=== PATIENT | male | born 1960 | race Caucasian/White ===

== ENCOUNTER 2020-08-08 21:13 | Emergency (ER) | payer OTHER ==
[~2020-08-08] VITALS: Ht 180.3 cm; Wt 122.5 kg
[2020-08-08 21:56] LABS: BASOPHILS ABSOLUTE AUTO 0.05 K/mm3 (0.00-0.23); BASOPHILS PERCENT AUTO 1 % (0-2); EOSINOPHILS ABSOLUTE AUTO 0.35 K/mm3 (0.00-0.68); EOSINOPHILS PERCENT AUTO 4 % (0-6); Hematocrit 44.6 % (37.0-53.0); Hemoglobin 15.2 g/dL (13.5-17.5); IMMATURE GRAN ABSOLUTE AUTO 0.05 K/mm3 (0.00-0.10); IMMATURE GRAN PERCENT AUTO 1 % (0-1); LYMPHOCYTES ABSOLUTE AUTO 2.06 K/mm3 (0.84-5.20); LYMPHOCYTES PERCENT AUTO 23 % (21-46); MONOCYTES PERCENT AUTO 7 % (4-13); Mean Corpuscular HGB 29.3 pg (26.0-34.0); Mean Corpuscular HGB Conc 34.1 g/dL (31.5-36.5); Mean Corpuscular Volume 86 fL (80-100); Mean Platelet Volume 10.3 fL (9.1-12.4); NEUTROPHILS ABSOLUTE AUTO 6.06 K/mm3 (1.96-9.15); NEUTROPHILS PERCENT AUTO 66 % (41-73); Platelet Count 290 K/mm3 (150-400); RDW Coefficient Variation 13.1 % (11.7-14.2); Red Blood Cell Count 5.18 M/mm3 (4.30-5.90); White Blood Cell Count 9.17 K/mm3 (4.00-11.30)
[2020-08-08 22:16] LABS: Alanine Aminotransfer (ALT/SGP 43 U/L (12-78); Albumin/Globulin Ratio 0.7 (0.8-1.8); Alk Phos 105 U/L (50-136); Anion Gap 6 mmol/L (6-16); Aspartate Aminotrans (AST/SGOT 27 U/L (12-37); Bilirubin, Total 0.4 mg/dL (0.1-1.0); Blood Urea Nitrogen 18 mg/dL (8-24); Bun/Creatinine Ratio 20.8 (12.0-20.0); CO2, Blood 23 mmol/L (21-32); Calcium, Blood 8.6 mg/dL (8.5-10.1); Chloride, Blood 102 mmol/L (98-108); Creatinine, Blood 0.87 mg/dL (0.60-1.20); Globulin, Blood 4.1 g/dL (2.2-4.0); Glomerular Filtration Rate >60 (60-); Glucose, Blood 428 mg/dL (70-99); Potassium, Blood 5.1 mmol/L (3.5-5.5); Sodium, Blood 131 mmol/L (136-145); Total Protein, Blood 7.1 g/dL (6.4-8.2); Troponin I <0.015 ng/mL (0.000-0.040)
[2020-08-09] MEDS ORDERED: PRED20 PO (00:28)
[2020-08-09] MEDS ORDERED: GUAI600T33 PO (00:28)
[2020-08-09] MEDS ORDERED: Ventolin5 MG/1 ML NEB (00:28)
== END 2020-08-09 01:00 | disposition home or self-care (01) ==
LOC: ER 21:13
PROVIDERS: Physician Assistant
DX: J44.0 Chronic obstructive pulmonary disease with (acute) lower respiratory infection (principal); J18.9 Pneumonia, unspecified organism; J44.1 Chronic obstructive pulmonary disease with (acute) exacerbation; E16.2 Hypoglycemia, unspecified
CPT/HCPCS: 71046; 80053; 82947; 84484; 85025; 93005; 93010; 94640; 96374; 99284-25; J1815; J2930

== ENCOUNTER 2021-01-13 18:06 | Emergency (ER) | payer OTHER ==
[~2021-01-13] VITALS: Ht 180.3 cm; Wt 104.3 kg
[~2021-01-13 18:06] MED LIST: GUAI600T33 PO; PRED20 PO; Ventolin5 MG/1 ML NEB
[2021-01-13 18:39] LABS: Base Excess Venous 0.6 mmol/L; Bicarbonate Venous 24.5 mmol/L (24.0-30.0); PCO2 Venous 42.8 mmHg (38-42); PO2 Venous 58.4 mmHg (38-42); pH Blood Venous 7.39 (7.34-7.37)
[2021-01-13 18:41] LABS: BASOPHILS ABSOLUTE AUTO 0.05 K/mm3 (0.00-0.23); BASOPHILS PERCENT AUTO 1 % (0-2); EOSINOPHILS ABSOLUTE AUTO 0.37 K/mm3 (0.00-0.68); EOSINOPHILS PERCENT AUTO 4 % (0-6); Hematocrit 43.8 % (37.0-53.0); IMMATURE GRAN ABSOLUTE AUTO 0.03 K/mm3 (0.00-0.10); IMMATURE GRAN PERCENT AUTO 0 % (0-1); LYMPHOCYTES PERCENT AUTO 19 % (21-46); MONOCYTES ABSOLUTE AUTO 0.54 K/mm3 (0.16-1.47); MONOCYTES PERCENT AUTO 6 % (4-13); Mean Corpuscular HGB Conc 34.2 g/dL (31.5-36.5); Mean Corpuscular Volume 85 fL (80-100); Mean Platelet Volume 10.5 fL (9.1-12.4); NEUTROPHILS ABSOLUTE AUTO 6.35 K/mm3 (1.96-9.15); NEUTROPHILS PERCENT AUTO 70 % (41-73); Platelet Count 290 K/mm3 (150-400); RDW Coefficient Variation 12.6 % (11.7-14.2); RDW Standard Deviation 38.8 fL (35.1-46.3); Red Blood Cell Count 5.18 M/mm3 (4.30-5.90); White Blood Cell Count 9.04 K/mm3 (4.00-11.30)
[2021-01-13 19:02] LABS: Alanine Aminotransfer (ALT/SGP 31 U/L (12-78); Albumin, Blood 2.9 g/dL (3.4-5.0); Albumin/Globulin Ratio 0.7 (0.8-1.8); Alk Phos 110 U/L (50-136); Anion Gap 7 mmol/L (6-16); Aspartate Aminotrans (AST/SGOT 13 U/L (12-37); Bilirubin, Total 0.2 mg/dL (0.1-1.0); Blood Urea Nitrogen 12 mg/dL (8-24); Bun/Creatinine Ratio 15.9 (12.0-20.0); CO2, Blood 24 mmol/L (21-32); Calcium, Blood 8.6 mg/dL (8.5-10.1); Chloride, Blood 103 mmol/L (98-108); Creatinine, Blood 0.76 mg/dL (0.60-1.20); Globulin, Blood 4.1 g/dL (2.2-4.0); Glomerular Filtration Rate >60 (60-); Glucose, Blood 380 mg/dL (70-99); Phosphorus, Blood 3.3 mg/dL (2.5-4.9); Potassium, Blood 4.6 mmol/L (3.5-5.5); Sodium, Blood 134 mmol/L (136-145)
[2021-01-13 20:21] LABS: Source, Urine Clean Catch
[2021-01-13 20:24] LABS: Bilirubin, Urine Neg (Neg); Blood, Urine Neg (Neg); Glucose Qualitative, Urine 4+ (Neg); Ketones, Urine Neg (Neg); Leukocyte Esterase, Urine 2+ (Neg); Nitrite, Urine Neg (Neg); Protein, Urine Neg (Neg); Urobilinogen, Urine NORM (Normal); pH, Urine 6.5 (5.0-8.0)
[2021-01-13] MEDS ORDERED: METF500 (20:28)
[2021-01-13] MEDS ORDERED: BLOOD PRESSURE (20:28)
[2021-01-13] MEDS ORDERED: BASAGLAR K100 UNIT/1 SC (20:28)
[2021-01-13] MEDS ORDERED: ATOR10 (20:28)
[2021-01-13] MEDS ORDERED: FAST ACTING INSULIN SC (20:29)
[2021-01-13 20:32] LABS: Appearance, Urine Hazy (Clear); Color, Urine Pale Yellow (P-Yellow)
[2021-01-13 20:33] LABS: Red Blood Cells, Urine 0-2 /hpf (0-2)
[2021-01-13 20:34] LABS: Bacteria Few /hpf; Squamous Epithelial Cells Rare /hpf (Few)
== END 2021-01-13 21:29 | disposition left against medical advice (07) ==
LOC: ER 18:06
PROVIDERS: Physician Assistant
DX: R73.9 Hyperglycemia, unspecified (principal); Z53.21 Procedure and treatment not carried out due to patient leaving prior to being seen by health care provider
CPT/HCPCS: 80053; 81001; 82803; 82947; 83735; 84100; 85025; 87086; 87147; 99284; J7030

== ENCOUNTER 2021-02-09 13:06 | Emergency (ER) | payer OTHER ==
[~2021-02-09] VITALS: Ht 177.8 cm; Wt 88.5 kg
[~2021-02-09 13:06] MED LIST changes: +ATOR10; +BASAGLAR K100 UNIT/1 SC; +BLOOD PRESSURE; +FAST ACTING INSULIN SC; +METF500
[2021-02-09 13:56] LABS: BASOPHILS ABSOLUTE AUTO 0.02 K/mm3 (0.00-0.23); BASOPHILS PERCENT AUTO 0 % (0-2); EOSINOPHILS ABSOLUTE AUTO 0.08 K/mm3 (0.00-0.68); EOSINOPHILS PERCENT AUTO 1 % (0-6); Hematocrit 40.4 % (37.0-53.0); Hemoglobin 14.1 g/dL (13.5-17.5); IMMATURE GRAN ABSOLUTE AUTO 0.03 K/mm3 (0.00-0.10); IMMATURE GRAN PERCENT AUTO 0 % (0-1); LYMPHOCYTES ABSOLUTE AUTO 0.68 K/mm3 (0.84-5.20); LYMPHOCYTES PERCENT AUTO 10 % (21-46); MONOCYTES ABSOLUTE AUTO 0.42 K/mm3 (0.16-1.47); MONOCYTES PERCENT AUTO 6 % (4-13); Mean Corpuscular HGB 29.1 pg (26.0-34.0); Mean Corpuscular HGB Conc 34.9 g/dL (31.5-36.5); Mean Corpuscular Volume 83 fL (80-100); Mean Platelet Volume 11.3 fL (9.1-12.4); NEUTROPHILS PERCENT AUTO 82 % (41-73); Platelet Count 184 K/mm3 (150-400); RDW Coefficient Variation 12.9 % (11.7-14.2); RDW Standard Deviation 39.2 fL (35.1-46.3); Red Blood Cell Count 4.85 M/mm3 (4.30-5.90); White Blood Cell Count 6.73 K/mm3 (4.00-11.30)
[2021-02-09 14:32] LABS: Alanine Aminotransfer (ALT/SGP 40 U/L (12-78); Albumin, Blood 2.9 g/dL (3.4-5.0); Albumin/Globulin Ratio 0.7 (0.8-1.8); Alk Phos 86 U/L (50-136); Anion Gap 9 mmol/L (6-16); Aspartate Aminotrans (AST/SGOT 24 U/L (12-37); Bilirubin, Total 0.5 mg/dL (0.1-1.0); Blood Urea Nitrogen 13 mg/dL (8-24); Bun/Creatinine Ratio 18.1 (12.0-20.0); CO2, Blood 21 mmol/L (21-32); Calcium, Blood 8.4 mg/dL (8.5-10.1); Chloride, Blood 103 mmol/L (98-108); Creatinine, Blood 0.72 mg/dL (0.60-1.20); Glomerular Filtration Rate >60 (60-); Glucose, Blood 210 mg/dL (70-99); Sodium, Blood 133 mmol/L (136-145); Total Protein, Blood 6.9 g/dL (6.4-8.2); Troponin I <0.015 ng/mL (0.000-0.040)
[2021-02-09 15:16] LABS: SARS-Cov-2 (COVID-19) PCR, MMC POSITIVE (NEGATIVE)
[2021-02-09] MEDS ORDERED: DEXA4 PO (15:48)
== END 2021-02-09 18:11 | disposition home or self-care (01) ==
LOC: ER 13:06
PROVIDERS: Emergency Medicine
DX: U07.1 COVID-19 (principal); J12.82 Pneumonia due to coronavirus disease 2019; R09.02 Hypoxemia; I10 Essential (primary) hypertension; J44.9 Chronic obstructive pulmonary disease, unspecified; F17.200 Nicotine dependence, unspecified, uncomplicated; Z79.899 Other long term (current) drug therapy; Z79.84 Long term (current) use of oral hypoglycemic drugs; Z79.4 Long term (current) use of insulin
CPT/HCPCS: 71045; 80053; 83880; 84484; 85025; 93005; 93010; 96374; 99284-25; J1100; J2550; J7030; U0004

== ENCOUNTER 2021-02-12 16:12 | Inpatient (IN) | payer OTHER ==
[~2021-02-12] VITALS: Ht 180.3 cm; Wt 112.0 kg
[~2021-02-12 16:12] MED LIST changes: +DEXA4 PO
[2021-02-12 16:38] LABS: BASOPHILS ABSOLUTE AUTO 0.02 K/mm3 (0.00-0.23); BASOPHILS PERCENT AUTO 0 % (0-2); EOSINOPHILS ABSOLUTE AUTO 0.01 K/mm3 (0.00-0.68); EOSINOPHILS PERCENT AUTO 0 % (0-6); Hematocrit 39.7 % (37.0-53.0); Hemoglobin 13.9 g/dL (13.5-17.5); IMMATURE GRAN ABSOLUTE AUTO 0.02 K/mm3 (0.00-0.10); IMMATURE GRAN PERCENT AUTO 0 % (0-1); LYMPHOCYTES ABSOLUTE AUTO 0.87 K/mm3 (0.84-5.20); LYMPHOCYTES PERCENT AUTO 16 % (21-46); MONOCYTES PERCENT AUTO 7 % (4-13); Mean Corpuscular HGB 29.4 pg (26.0-34.0); Mean Corpuscular Volume 84 fL (80-100); Mean Platelet Volume 10.8 fL (9.1-12.4); NEUTROPHILS PERCENT AUTO 76 % (41-73); Platelet Count 214 K/mm3 (150-400); RDW Coefficient Variation 12.6 % (11.7-14.2); RDW Standard Deviation 38.5 fL (35.1-46.3); Red Blood Cell Count 4.73 M/mm3 (4.30-5.90); White Blood Cell Count 5.62 K/mm3 (4.00-11.30)
[2021-02-12 16:54] LABS: Alanine Aminotransfer (ALT/SGP 32 U/L (12-78); Albumin, Blood 2.6 g/dL (3.4-5.0); Albumin/Globulin Ratio 0.6 (0.8-1.8); Alk Phos 79 U/L (50-136); Anion Gap 5 mmol/L (6-16); Aspartate Aminotrans (AST/SGOT 28 U/L (12-37); Bilirubin, Total 0.6 mg/dL (0.1-1.0); Blood Urea Nitrogen 13 mg/dL (8-24); Bun/Creatinine Ratio 16.5 (12.0-20.0); CO2, Blood 27 mmol/L (21-32); Calcium, Blood 8.1 mg/dL (8.5-10.1); Chloride, Blood 99 mmol/L (98-108); Creatinine, Blood 0.79 mg/dL (0.60-1.20); Glomerular Filtration Rate >60 (60-); Glucose, Blood 291 mg/dL (70-99); Sodium, Blood 131 mmol/L (136-145); Total Protein, Blood 6.6 g/dL (6.4-8.2); Troponin I <0.015 ng/mL (0.000-0.040)
[2021-02-12] MEDS ORDERED: ATORVASTATIN CA20 MG PO (17:58)
[2021-02-12] MEDS ORDERED: LISI20 PO (17:59)
[2021-02-12] MEDS ORDERED: INSULIN LI100 UNIT/6 SC (17:59)
--- NOTE | 2021-02-12 22:13 | NUR ---
BLOOD SUGAR 360. DR. LIMA MADE AWARE PER SLIDING SCALE. NO NEW ORDER GIVEN. HE ADVISED TO CONTINUE WITH SAME SLIDING SCALE.
--- NOTE | 2021-02-12 23:00 | NUR ---
ADMISSION NOTE: RECEIVED PT FROM ER AAOX3. SOB. LUNGS WITH RHONCHI. ON O2 15L VIA NON-REBREAHER MASK. SAT 90%. BREATING STILL LABORED. AIRVOW INITIATED BY RT. SAT 94-96%. PT WAS ANXIOUS. MEDICATED WITH ATIVAN PRN X1. PT REPORTED FEELING BETTER. REMAINED ON AIRVOW. SR 68 ON TELE. SNACK GIVEN. TOLERATED WELL. CALL LIGHT WITHIN REACH. BED ALARM EXIT ON FOR SAFETY.
--- NOTE | 2021-02-13 05:18 | NUR ---
PT SATURATING AT 94-96% ON AIRVOW. ANXIOUS AT TIMES. NO RESP DISTRESS. VSS. SR ON TELE. CALL LIGHT WITHIN REACH. WILL CONTINUE TO MONITOR.
--- NOTE | 2021-02-13 06:18 | NUR ---
PT C/O OF NAUSEA AND HEADACHE AND STARTED COUGHING. O2 SAT DROPPED TO 84. RT CALLED AND CHARGE NURSE NOTIFIED. ZOFRAN AND TORADOL PRN GIVEN. PT BECAME LETHARGIC. HR [address] REYNOSO NOTIFIED OF PT'S CONDITION BY FUEL DOCK ATTENDANT. PT WAS PLACED ON BIPAP BY RT. SAT AT 96% NOW. ALERT AND FOLLOWS COMMANDS. SINUS MACEY ON MONITOR 52. VS 118/61, HR 51, TEMP 97.8, BG 382. ABG ORDERED. WILL CONTINUE TO MONITOR.
[2021-02-13 07:29] LABS: PCO2 Arterial 40.4 mmHg (35-45); PO2 Arterial 207 mmHg (80-100); pH Blood Arterial 7.39 (7.35-7.45)
--- NOTE | 2021-02-13 17:05 | NUR ---
SHIFT SUMMARY PT COVID +, ON BIPAP, RESTING QUIETLY AT START OF SHIFT. REQUESTED BIPAP OFF TO EAT BREAKFAST. RT ASSISTED PT AND PLACED BACK ON AIRVO 55L @ 70%. PT HAS DONE WELL ALL DAY. ONE COUGHING EPISODE; MEDICATED PER EMAR AND RT REQUEST. PT EATING AND DRINKING WELL. CBG'S ELEVATED; INSULIN ADJUSTED. PT USING URINAL AT BS INDEPENDENTLY. SLEEPING UPRIGHT IN BED MOST OF THE TIME, WATCHING TV W/A. CALL LT IN REACH. ABLE TO MAKE NEEDS KNOWN.
--- NOTE | 2021-02-13 23:59 | NUR ---
HS BS WAS 412. DR. LIMA CALLED AND NOTIFIED. SEMGLEE 20 UNITS GIVEN X1 IN ADDITION TO HS SLIDING SCALE. SNACK GIVEN. PT ON AIRVOW. SAT 90%. PT DESATS TO 88 WHEN FALLING ASLEEP. SWITCH TO BIPAP. ATIVAN PRN GIVEN. ON TELE SR. HR 62. MEDICATED FOR COUGH PER JUN. REPORTS FEELING BETTER.
--- NOTE | 2021-02-14 03:50 | NUR ---
PT IS AAOX3. SINUS MACEY TO SINUS RHYTHM ON TELE. VSS. COUGHING AT TIMES PRODUCTIVELY WHITE SPUTUM. MEDICATED FOR COUGH WITH GOOD EFFECT. ON BIPAP AT NIGHT SAT AT 94-96%. SAFETY AND COMFORT MEASURES MAINTAINED. MEDS GIVEN PER JUN. WILL CONTINUE TO MONITOR.
--- NOTE | 2021-02-14 18:48 | NUR ---
PT AAOX4,CONTINUE ON AIRBO O2 THERAPY,NO DACUTE DISTRESS NOTED, PRACTICE BREATHING EXERCISE,TOLERATING FAIRLY,PT REFUSED MOST OF MEALS, CHICKEN NOODLE SOUP OFFERED THIS EVENING.C/O CONSTIPATION AND ABDO PAIN,PAIN MEDS GIVEN GOOD EFFECT,NEW ORDER FOR MIRALAX,GIVEN WITH PENDING RESULTS,MEDICATED FOR NAUSEA WITH GOOD EFFECT.CONTINUE WITH COVID MANAGEMENT,CALL LIGHT WITHIN REACH,WILL CONTINUE TO MONITOR.
--- NOTE | 2021-02-14 21:00 | NUR ---
BS 452. DR. GRIFFITHS NOTIFIED. NO NEW ORDER. PT DENIES ANY DISCOMFORT. NO CHANGE IN STATUS NOTED.
--- NOTE | 2021-02-15 03:55 | NUR ---
PT IS AAO. STILL ON AIRVOW @50L/80% O2. SAT 90-96%. EPISODES OF COUGH RELIEVED WITH MEDS. SR 77 ON TELE. MEDS GIVEN AND TOLERATED. NO EVENT DURING NIGHT. VSS. ABD LARGE. BM X1. SAFETY AND COMFORT MEASURES MAINTAINED.
--- NOTE | 2021-02-15 18:29 | NUR ---
PT AAOX4,CONTINUE ON TREATMENT FOR COVID,INCENTIVE SPIROMETER GIVEN AND BREATHING EXERCISE ENCOURAGED.POOR APPETITE,NO DISTRESS NOTED, PT DESATS WITH ACTIVITY INTO 80s BUT02 INCREASES FASTER.PAIN MEDS AND COUGH MEDS GIVEN NEEDED.CALL LIGHT WITHIN REACH, MONITORING CONTINUES
--- NOTE | 2021-02-16 03:42 | NUR ---
PATIENT CURRENTLY ON AIRVO AT 50L AND 80%fi02. HE HAS REMAINED IN THE LOW TO MID 90'S THROUGH THE NIGHT, ALTHOUGH EARLY IN THE EVENING, HIS SATURATIONS DIPPED BRIEFLY INTO THE HIGH 80'S WHILE HE WAS STANDING AT BEDSIDE, RODY STILL HAS A REALLY VIOLENT COUGH THAT REMAINS NON PRODUCTIVE. LUNG SOUNDS ARE COARSE WITIH AREAS OF SCATTERED RHONCHI AND AUDIBLE WHEEZING IN UPPER AND LATERAL LUNG PARK, PATIENT WAS GIVEN 2 DOSES OF ROBITUSSEN, 200MG TESSALON PEARLS, AND 1MG IV ATIVAN FOR INCREASED ANXIETY WHEN COUGHING WAS AT IT'S WORST.
[2021-02-16 04:45] LABS: Hematocrit 41.3 % (37.0-53.0); Hemoglobin 14.1 g/dL (13.5-17.5); Mean Corpuscular HGB 29.1 pg (26.0-34.0); Mean Corpuscular HGB Conc 34.1 g/dL (31.5-36.5); Mean Corpuscular Volume 85 fL (80-100); Mean Platelet Volume 10.8 fL (9.1-12.4); Platelet Count 330 K/mm3 (150-400); RDW Coefficient Variation 12.6 % (11.7-14.2); RDW Standard Deviation 39.2 fL (35.1-46.3); Red Blood Cell Count 4.85 M/mm3 (4.30-5.90); White Blood Cell Count 14.22 K/mm3 (4.00-11.30)
[2021-02-16 05:03] LABS: Anion Gap 4 mmol/L (6-16); Blood Urea Nitrogen 23 mg/dL (8-24); Bun/Creatinine Ratio 30.7 (12.0-20.0); CO2, Blood 28 mmol/L (21-32); Calcium, Blood 8.9 mg/dL (8.5-10.1); Chloride, Blood 99 mmol/L (98-108); Creatinine, Blood 0.75 mg/dL (0.60-1.20); Glomerular Filtration Rate >60 (60-); Glucose, Blood 232 mg/dL (70-99); Potassium, Blood 4.9 mmol/L (3.5-5.5); Sodium, Blood 131 mmol/L (136-145)
--- NOTE | 2021-02-16 17:17 | NUR ---
Met with patient after speaking to bedside nurse this am. She reports the patient is not eating his meals. She reports he refuses most all meals. Spoke to pt, he states he isn't trying to be "a pain". States he is very simple, and our food is "too fancy", and he has also lost ability to smell and taste, which is a common problem with Covid. He states he usually eats foods like burgers, tacos, australian fries. I wasn't aware there were no menus going out to patients any longer. Spoke to charge nurse Heydi regarding this pt. She recommended trying placing a dietary consult to adress he is not eating, see about diet change.
--- NOTE | 2021-02-16 20:27 | NUR ---
PT AAOX4 CONT ON AIRVO O2 THERAPY.PAIN MEDS GIVEN NEEDED. POOR INTAKE , CHICKEN NOODLE SOUPS ORDERED BOTH LUCH AND DINNER AND PT HAD 100%. BED BATH GIVEN WITH LINENS CHANGED.RECIEVED LAST DOSE OF REDEMSEVEIR TOLERATED WELL, CALL LIGHT WITHIN REACH.
--- NOTE | 2021-02-17 04:45 | NUR ---
SHIFT SUMMARY AOX4. VSS. TELE SB @50. SPO2 91-97% ON AIRVO 50L @80%. LS DIM c SCATTERED COARSE BREATH SOUNDS. REPORTS SOB c MINIMAL ACTIVITY. HAS OCC CONGESTED, HACKING COUGH-NONPRODUCTIVE. REPORTED ACHY PAIN IN HEAD, CHEST, THROAT & UPPER ABD, MEDICATED 1X c TYLENOL & NORCO. GAVE PRN COUGH MEDICATION, THROAT LOSANGES & HOT TEA. DENIES N/V. ENCOURAGED PRONING. CALL LIGHT IN REACH. WCTM.
--- NOTE | 2021-02-17 10:25 | NUR ---
PT AAOX4,NO ACUTE DSITRESS NOTED,POC REVIEWED WITH PT.POOR PO INTAKE,PT CONTINUE TO INSULT THE FOOD SERVED EVEN THE MILK. ENCOURAGED PO FLUIDS TOLERATED. WINNING OFF FROM ,PRESENTLY SET FOR 40L,60% AND AT 90 TO 96%.
--- NOTE | 2021-02-17 17:42 | NUR ---
PT REMAINED STABLE ALL SHIFT, WINNING OFF FROM 02, SETTINGS AT 35L 55%, PT TOLERATING WELL, PAIN MANAGE NEEDED.C/O OF FOOD NO GOOD AND DONT WANT TO EAT.
--- NOTE | 2021-02-17 18:06 | NUR ---
Pt met with Commercial Decorator today to discuss meals. along with ways to remain healthy while in the hosptial with case of Covid, and loss of taste and smell being his biggest complaints.
--- NOTE | 2021-02-18 05:20 | NUR ---
SHIFT SUMMARY AOX4. VSS. TELE NSR c PVC @78. REPORTS ALBERT 01/02 GAVE TYLENOL & NORCO 1X. THIS AM PT DENIES ANY PAIN. HAS HARSH, CONGESTED, HACKING COUGH. GAVE MARIBELL GRIFFITH & KHRIS. SPO2 @96% ON 35L @65% ON AIRVO. LS DIM & COARSE IN BASES. CBG @HS WAS 93, HELD LONG ACTING INSULIN SINCE PT HAD 01/02 ALBERT & CBG HAS BEEN RUNNING 300'S PAST FEW DAYS, INFORMED CHARGE NURSE, ALSO GAVE PT A SNACK. CALL LIGHT IN REACH. WCTM.
--- NOTE | 2021-02-18 19:23 | NUR ---
PT AA0X4, STILL AIRVO FIO2 35L 65%, PT HAVING AN ADEQUATE APPETITE, ATE MOST OF HIS MEALS, AND EXTRA GIVEN REQUESTED. NO DISTRESS NOTED,HAD, PAIN MEDS GIVEN NEEDED. CALL LIGHT WITHIN REACH.
--- NOTE | 2021-02-19 06:08 | NUR ---
VSS, PT A0X4. MEDICATED ONCE FOR PAIN THIS SHIFT. NO OTHER COMPLAINTS OR ISSUES OBSERVED. PT IS ON AIRVO 36L 65%. SAFTEY MEASURES IN PLACE, CALL LIGHT IN REACH
--- NOTE | 2021-02-19 17:46 | NUR ---
SHIFT SUMMARY 60 Y MALE ADMITTED WITH COVID, RESP FAIL. PT IS A&O, PLAESANT AND COOPERATIVE WITH CARE. PT IS ON AIRVOW @ 35L/ 65%FIO2 AND MAINTAINING SATS IN THE HIGH 90'S. PT DOES DESAT WIHT ACTIVITY AND REPORTS HE IS VERY FATIGUED. PT WAS ABLE TO EAT BETTER TODAY AND REPORTS HE FEELS BETTER TODAY. D/C PLANNING IS PENDING PT'S O2 NEEDS DECREASING TO A MANAGABLE LEVEL AT HOME. NO OTHER CHANGES THIS SHIFT.
--- NOTE | 2021-02-20 06:45 | NUR ---
VSS, PT COMPLAINED OF PAIN X1 THIS SHIFT. PAIN MED GIVEN AND PRN COUGH MEDICINE GIVEN. SETTING FOR AIRVO IS AT 35L 65%. NO OTHER ISSUES IDENTIFIED. SAFETY MEASURES IN PLACE. CALL LIGHT IN REACH
--- NOTE | 2021-02-20 16:55 | NUR ---
SHIFT SUMMARY 60 Y MALE ADMITTED WITH COVID, RESP FAIL. PT IS A&O, PLAESANT AND COOPERATIVE WITH CARE. PT IS ON AIRVOW TITRATED DOWN TO 35L/ 55% FIO2 AND MAINTAINING SATS IN MID 90'S. PT IS VERY EAGER TO GO HOME AND MOTIVATED TO CONTINUE TO TITRATE O2 DOWN FURTHER. RT IN OT EVAL PT AND DISCUSSED TRANSITIONING PT TO OXIMIZER AT SOMETIME TODAY. RT WILL BE BACK TO INITIATE AND SEE HOW PT TOLERATES. PT REPORTS HE HAD A BM YESTERDAY AND DENIES CONSTIPATION. NO OTHER CHANGES,
--- NOTE | 2021-02-20 17:47 | NUR ---
ELEVATED BS PT AC CBG AT DINNER TIME WAS 489. REPORTED TO MD AND NEW ORDERS REVIEVED TO RECHECK BS IN 2 HOURS AND NOTIFY MD IF >400. WILL PASS ON TO RECORD PRESS TENDER RN.
--- NOTE | 2021-02-21 05:32 | NUR ---
PT RESTING IN BED, SLEPT FOR MOST OF THE NIGHT. PT IS ALERT AND ORIENTED X4, HAS BEEN TREATED PER EMAR FOR HEADACHE. NO OTHER COMPLAINTS THIS SHIFT. PT REMIANS ON AIRVO AND PLAN IS TO TRIAL HIM DOWN THIS DAY SHIFT. WILL CON TO MONITOR.
--- NOTE | 2021-02-21 18:38 | NUR ---
PT AOX4 AND COOPERATIVE OF CARE. PT CONTINUES TO HAVE HIGH CBG LAST ONE 431. DR SANTIAGO NOTIFIED OF HIGH CBGs AND DID NOT WANT TO MAKE ANY CHANGES AT THIS TIME. PT IS NOW ON NON REBREATHER AT 15L MAINTIAING IN MID 90s. NO DISTRESS NOTED AND INDEPENDENT TO BEDSIDE COMMODE. WILL CONTINUE TO MONITOR.
--- NOTE | 2021-02-22 05:28 | NUR ---
VSS. PT IS A+OX4. PAIN MEDICATION REQUESTED 2X THIS SHIFT FOR HEADACHE. PT ON NON-REBREATHER 10L, SAT MID 90'S. LAST BG IN THE 400'S. PER PT HE IS LEAVING TODAY. NO DC ORDER SEEN. EDUCATED PT TO WAIT UNTIL MEDICALLY CLEARED.NO NEW ISSUES IDENTIFIED.CALL LIGHT IN REACH
[2021-02-22] MEDS ORDERED: BASAGLAR K100 UNIT/1 SC (11:33)
[2021-02-22] MEDS ORDERED: Prednisone10 MG (11:35)
--- NOTE | 2021-02-22 12:25 | NUR ---
PATIENT DISCHARGED TO HOME WITH FRIEND. HOME O2 TANK BROUGHT BY FRIEND. VERBALIZED UNDERSTANDING OF ALL D/C INSTRUCTIONS, INCLUDING THE NEED TO QUARANTINE HIMSELF FOR 10 DAYS. IV SALINE LOCK REMOVED WITHOUT INCIDIENT. OFF UNIT VIA W/C AT 1218. NO BELONGINGS LEFT BEHIND IN ROOM.
--- NOTE | 2021-03-02 11:39 | NUR ---
PATIENT CALLED TO SAY MEDICATIONS NOT AT PHARMACY. CALLED PRESCRIPTIONS TO [facility] PER REQUEST.
== END 2021-02-22 12:22 | disposition home or self-care (01) | DRG 177 ==
LOC: ER 16:12 → MEDS 20:08
PROVIDERS: Internal Medicine; Physician Assistant; ADMIT Internal Medicine
PROC: 8E0ZXY6 Isolation (ICD-10-PCS; principal; 2021-02-12)
PROC: XW033E5 Introduction of Remdesivir Anti-infective into Peripheral Vein, Percutaneous Approach, New Technology Group 5 (ICD-10-PCS; 2021-02-12)
PROC: 3E02340 Introduction of Influenza Vaccine into Muscle, Percutaneous Approach (ICD-10-PCS; 2021-02-12)
DX: U07.1 COVID-19 (principal); J96.01 Acute respiratory failure with hypoxia; J12.82 Pneumonia due to coronavirus disease 2019; R65.10 Systemic inflammatory response syndrome (SIRS) of non-infectious origin without acute organ dysfunction; J44.0 Chronic obstructive pulmonary disease with (acute) lower respiratory infection; E66.9 Obesity, unspecified; J44.9 Chronic obstructive pulmonary disease, unspecified; Z23 Encounter for immunization; E66.01 Morbid (severe) obesity due to excess calories; Z68.35 Body mass index [BMI] 35.0-35.9, adult; I10 Essential (primary) hypertension; E11.9 Type 2 diabetes mellitus without complications; F17.210 Nicotine dependence, cigarettes, uncomplicated; Z79.899 Other long term (current) drug therapy; Z79.4 Long term (current) use of insulin; T38.0X5A Adverse effect of glucocorticoids and synthetic analogues, initial encounter
CPT/HCPCS: 36415; 36600; 71045; 80048; 80053; 82728; 82803; 82947; 83615; 83880; 84145; 84484; 85025; 85027; 85379; 86140; 93005; 93010; 94640; 94660; 94760; 94761; 94762; 96365; 96375; 99285-25; A9270; J1650; J1815; J1885; J2060; J2405; J2920; J2930

== ENCOUNTER 2021-05-03 05:07 | Observation (INO) | payer OTHER ==
[~2021-05-03] VITALS: Ht 180.3 cm; Wt 120.3 kg
[~2021-05-03 05:07] MED LIST changes: +ATORVASTATIN CA20 MG PO; +INSULIN LI100 UNIT/6 SC; +LISI20 PO; +Prednisone10 MG
[2021-05-03 05:28] LABS: BASOPHILS ABSOLUTE AUTO 0.06 K/mm3 (0.00-0.23); BASOPHILS PERCENT AUTO 1 % (0-2); EOSINOPHILS ABSOLUTE AUTO 0.49 K/mm3 (0.00-0.68); EOSINOPHILS PERCENT AUTO 7 % (0-6); Hematocrit 42.9 % (37.0-53.0); Hemoglobin 14.4 g/dL (13.5-17.5); IMMATURE GRAN ABSOLUTE AUTO 0.03 K/mm3 (0.00-0.10); IMMATURE GRAN PERCENT AUTO 0 % (0-1); LYMPHOCYTES ABSOLUTE AUTO 1.53 K/mm3 (0.84-5.20); LYMPHOCYTES PERCENT AUTO 21 % (21-46); MONOCYTES ABSOLUTE AUTO 0.55 K/mm3 (0.16-1.47); MONOCYTES PERCENT AUTO 8 % (4-13); Mean Corpuscular HGB 29.4 pg (26.0-34.0); Mean Corpuscular HGB Conc 33.6 g/dL (31.5-36.5); Mean Corpuscular Volume 88 fL (80-100); Mean Platelet Volume 9.9 fL (9.1-12.4); NEUTROPHILS PERCENT AUTO 64 % (41-73); Platelet Count 309 K/mm3 (150-400); RDW Coefficient Variation 13.8 % (11.7-14.2); RDW Standard Deviation 44.2 fL (35.1-46.3); Red Blood Cell Count 4.89 M/mm3 (4.30-5.90); White Blood Cell Count 7.36 K/mm3 (4.00-11.30)
[2021-05-03 05:46] LABS: Alanine Aminotransfer (ALT/SGP 28 U/L (12-78); Albumin, Blood 3.1 g/dL (3.4-5.0); Albumin/Globulin Ratio 0.8 (0.8-1.8); Alk Phos 71 U/L (50-136); Anion Gap 9 mmol/L (6-16); Aspartate Aminotrans (AST/SGOT 11 U/L (12-37); Bilirubin, Total 0.3 mg/dL (0.1-1.0); Blood Urea Nitrogen 15 mg/dL (8-24); Bun/Creatinine Ratio 16.4 (12.0-20.0); CO2, Blood 24 mmol/L (21-32); Calcium, Blood 9.1 mg/dL (8.5-10.1); Chloride, Blood 105 mmol/L (98-108); Creatinine, Blood 0.91 mg/dL (0.60-1.20); Globulin, Blood 4.1 g/dL (2.2-4.0); Glomerular Filtration Rate >60 (60-); Glucose, Blood 234 mg/dL (70-99); Potassium, Blood 3.8 mmol/L (3.5-5.5); Sodium, Blood 138 mmol/L (136-145); Total Protein, Blood 7.2 g/dL (6.4-8.2)
[2021-05-03] MEDS ORDERED: Ventolin/Prove6.7 GM INH (06:04)
[2021-05-03] MEDS ORDERED: INSULIN GL100 UNIT/2 SQ (06:04)
[2021-05-03] MEDS ORDERED: [UNRECOGNIZED DRUG - CODE] PO (06:04)
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
--- NOTE | 2021-05-03 17:23 | NUR ---
SHIFT SUMMARY ASSUMED CARE AT APPROXIMATELY 1630. PT ALERT AND ORIENTED. VS STABLE. O2 SATS REMAIN ABOVE 90% ON 3L NC. PT COMPLAINS OF PAIN TO ACEVEDO ON HIS NOSE/NOSTRILS AND UPPER LIP. PT REPORTS PAIN IS TOLERABLE AT THIS TIME. SINUS TACH NOTED ON MONITOR. PT ORIENTED TO ROOM. PT SITTING UP EATING DINNER. WILL CONTINUE TO MONITOR AND REPORT TO ONCOMING RN.
[2021-05-04 04:31] LABS: BASOPHILS ABSOLUTE AUTO 0.03 K/mm3 (0.00-0.23); BASOPHILS PERCENT AUTO 0 % (0-2); EOSINOPHILS ABSOLUTE AUTO 0.01 K/mm3 (0.00-0.68); EOSINOPHILS PERCENT AUTO 0 % (0-6); Hematocrit 41.6 % (37.0-53.0); Hemoglobin 13.9 g/dL (13.5-17.5); IMMATURE GRAN ABSOLUTE AUTO 0.09 K/mm3 (0.00-0.10); IMMATURE GRAN PERCENT AUTO 1 % (0-1); LYMPHOCYTES ABSOLUTE AUTO 1.13 K/mm3 (0.84-5.20); LYMPHOCYTES PERCENT AUTO 8 % (21-46); MONOCYTES ABSOLUTE AUTO 0.16 K/mm3 (0.16-1.47); MONOCYTES PERCENT AUTO 1 % (4-13); Mean Corpuscular HGB 29.4 pg (26.0-34.0); Mean Corpuscular HGB Conc 33.4 g/dL (31.5-36.5); Mean Corpuscular Volume 88 fL (80-100); NEUTROPHILS ABSOLUTE AUTO 12.13 K/mm3 (1.96-9.15); NEUTROPHILS PERCENT AUTO 90 % (41-73); Platelet Count 308 K/mm3 (150-400); RDW Coefficient Variation 13.3 % (11.7-14.2); RDW Standard Deviation 43.5 fL (35.1-46.3); Red Blood Cell Count 4.73 M/mm3 (4.30-5.90); White Blood Cell Count 13.55 K/mm3 (4.00-11.30)
[2021-05-04 04:54] LABS: Alanine Aminotransfer (ALT/SGP 25 U/L (12-78); Albumin/Globulin Ratio 0.7 (0.8-1.8); Alk Phos 68 U/L (50-136); Anion Gap 6 mmol/L (6-16); Aspartate Aminotrans (AST/SGOT 9 U/L (12-37); Bilirubin, Total 0.5 mg/dL (0.1-1.0); Blood Urea Nitrogen 20 mg/dL (8-24); Bun/Creatinine Ratio 25.4 (12.0-20.0); CO2, Blood 24 mmol/L (21-32); Chloride, Blood 104 mmol/L (98-108); Creatinine, Blood 0.79 mg/dL (0.60-1.20); Globulin, Blood 4.1 g/dL (2.2-4.0); Glomerular Filtration Rate >60 (60-); Glucose, Blood 275 mg/dL (70-99); Potassium, Blood 4.9 mmol/L (3.5-5.5); Sodium, Blood 134 mmol/L (136-145); Total Protein, Blood 7.1 g/dL (6.4-8.2)
--- NOTE | 2021-05-04 04:55 | NUR ---
SHIFT SUMMARY: PATIENT A&O X4, SINUS TACH, AND MAINTAINING O2 SAT >94% ON 3L NC WHICH IS HIS HOME BASELINE. PATIENT'S FACE HAS 2ND DEGREE ACEVEDO AROUND NOSE, NARES, UPPER LIP, AND CHEEKBONES AND IS VERY PAINFUL. PATIENT PLEASANT AND COOPERATIVE WITH CARE, USES CALL LIGHT APPROPRIATELY. MEDICATING FOR PAIN PER EMAR - PATIENT FEELS LESS NAUSEOUS IF PAIN MEDICATION IS ACCOMPANIED BY SMALL SNACK. NO ADVERSE EVENTS THIS SHIFT. WILL CONTINUE TO MONITOR AND REPORT TO DAY RN.
[2021-05-04] MEDS ORDERED: MUPIROCIN1 G1 TOP (12:12)
--- NOTE | 2021-05-04 12:33 | NUR ---
DISCHARGE DC INSTRUCTIONS PROVIDED TO PT. PT EDUCATED ON MEDICATIONS AND HOW TO TREAT ACEVEDO. ALL QUESTIONS ANSWERED. PT AWAITING RIDE
== END 2021-05-04 13:14 | disposition home or self-care (01) ==
LOC: ER 05:07 → PCU 05:08 → ERHOLD 05:08 → ER 05:08 → ERHOLD 05:08 → ICUE 09:06 → PCU 16:31
PROVIDERS: Emergency Medicine; ADMIT Internal Medicine
DX: T20.04XA Burn of unspecified degree of nose (septum), initial encounter (principal); T20.02XA Burn of unspecified degree of lip(s), initial encounter; X08.8XXA Exposure to other specified smoke, fire and flames, initial encounter; R11.0 Nausea; E11.65 Type 2 diabetes mellitus with hyperglycemia; I16.0 Hypertensive urgency; J96.11 Chronic respiratory failure with hypoxia; E66.9 Obesity, unspecified; I10 Essential (primary) hypertension; E78.5 Hyperlipidemia, unspecified; J44.9 Chronic obstructive pulmonary disease, unspecified; F17.210 Nicotine dependence, cigarettes, uncomplicated; Z79.4 Long term (current) use of insulin; Z79.899 Other long term (current) drug therapy; Z86.16 Personal history of COVID-19
CPT/HCPCS: 36415; 80053; 82947; 85025; 90686; 94640; 96372; 96376; A9270; G0378; J1170; J1650; J1815; J2405; J2930; J3010; J7030

== ENCOUNTER 2021-11-12 22:31 | Emergency (ER) | payer OTHER ==
[~2021-11-12] VITALS: Ht 180.3 cm; Wt 102.1 kg
[~2021-11-12 22:31] MED LIST changes: +INSULIN GL100 UNIT/2 SQ; +MUPIROCIN1 G1 TOP; +Ventolin/Prove6.7 GM INH; +[UNRECOGNIZED DRUG - CODE] PO
[2021-11-12 23:18] LABS: BASOPHILS ABSOLUTE AUTO 0.04 K/mm3 (0.00-0.23); BASOPHILS PERCENT AUTO 1 % (0-2); EOSINOPHILS ABSOLUTE AUTO 0.35 K/mm3 (0.00-0.68); EOSINOPHILS PERCENT AUTO 5 % (0-6); Hematocrit 39.6 % (37.0-53.0); Hemoglobin 13.7 g/dL (13.5-17.5); IMMATURE GRAN ABSOLUTE AUTO 0.01 K/mm3 (0.00-0.10); IMMATURE GRAN PERCENT AUTO 0 % (0-1); LYMPHOCYTES ABSOLUTE AUTO 1.52 K/mm3 (0.84-5.20); LYMPHOCYTES PERCENT AUTO 22 % (21-46); MONOCYTES ABSOLUTE AUTO 0.54 K/mm3 (0.16-1.47); MONOCYTES PERCENT AUTO 8 % (4-13); Mean Corpuscular HGB 29.5 pg (26.0-34.0); Mean Corpuscular HGB Conc 34.6 g/dL (31.5-36.5); Mean Corpuscular Volume 85 fL (80-100); Mean Platelet Volume 9.9 fL (9.1-12.4); NEUTROPHILS ABSOLUTE AUTO 4.45 K/mm3 (1.96-9.15); NEUTROPHILS PERCENT AUTO 64 % (41-73); Platelet Count 271 K/mm3 (150-400); RDW Standard Deviation 40.1 fL (35.1-46.3); Red Blood Cell Count 4.65 M/mm3 (4.30-5.90); White Blood Cell Count 6.91 K/mm3 (4.00-11.30)
[2021-11-12 23:34] LABS: International Normalized Ratio 0.97; Prothrombin Time Results 10.2 Sec (9.7-11.5)
[2021-11-12 23:37] LABS: Albumin, Blood 2.9 g/dL (3.4-5.0); Albumin/Globulin Ratio 0.7 (0.8-1.8); Bilirubin, Total 0.4 mg/dL (0.1-1.0); Bun/Creatinine Ratio 15.5 (12.0-20.0); Calcium, Blood 8.6 mg/dL (8.5-10.1); Creatinine, Blood 0.9 mg/dL (0.60-1.20); Globulin, Blood 4.2 g/dL (2.2-4.0); Potassium, Blood 4.3 mmol/L (3.5-5.5); Total Protein, Blood 7.1 g/dL (6.4-8.2)
[2021-11-13] MEDS ORDERED: HYDR1TAB94 PO (00:40)
== END 2021-11-13 01:10 | disposition home or self-care (01) ==
LOC: ER 22:31
PROVIDERS: Physician Assistant
DX: S61.412A Laceration without foreign body of left hand, initial encounter (principal); S30.1XXA Contusion of abdominal wall, initial encounter; S30.0XXA Contusion of lower back and pelvis, initial encounter; S80.12XA Contusion of left lower leg, initial encounter; I10 Essential (primary) hypertension; E11.9 Type 2 diabetes mellitus without complications; I83.12 Varicose veins of left lower extremity with inflammation; Z79.899 Other long term (current) drug therapy; Z79.84 Long term (current) use of oral hypoglycemic drugs; Z79.4 Long term (current) use of insulin; J44.9 Chronic obstructive pulmonary disease, unspecified; F17.200 Nicotine dependence, unspecified, uncomplicated; V53.5XXA Driver of pick-up truck or van injured in collision with car, pick-up truck or van in traffic accident, initial encounter
CPT/HCPCS: 36415; 70450; 72125; 73130; 74177; 80053; 83690; 85025; 85610; 99284-25; A9270; Q9967

== ENCOUNTER 2022-11-17 10:31 | Emergency (ER) | payer OTHER ==
[~2022-11-17] VITALS: Ht 180.3 cm; Wt 102.1 kg
[~2022-11-17 10:31] MED LIST changes: +HYDR1TAB94 PO
[2022-11-17 10:39] VITALS: BP 175/98
[2022-11-17] MEDS ORDERED: CEPH500 PO (11:14)
== END 2022-11-17 14:19 | disposition home or self-care (01) ==
LOC: ER 10:31
DX: S62.651B Nondisplaced fracture of middle phalanx of left index finger, initial encounter for open fracture (principal); I10 Essential (primary) hypertension; E11.9 Type 2 diabetes mellitus without complications; J44.9 Chronic obstructive pulmonary disease, unspecified; F17.200 Nicotine dependence, unspecified, uncomplicated; Z23 Encounter for immunization; Z79.4 Long term (current) use of insulin; Z79.84 Long term (current) use of oral hypoglycemic drugs; Z79.899 Other long term (current) drug therapy; W31.89XA Contact with other specified machinery, initial encounter; Y92.009 Unspecified place in unspecified non-institutional (private) residence as the place of occurrence of the external cause
CPT/HCPCS: 12001; 73130; 90471; 90715; 99283-25

== ENCOUNTER 2024-04-10 01:35 | Emergency (ER) | payer MEDICARE, OTHER ==
[~2024-04-10] VITALS: Ht 180.3 cm; Wt 99.8 kg
[~2024-04-10 01:35] MED LIST changes: +ALBU90OI INH; +AZIT250 PO; +BENZ100A PO; +CEPH500 PO; +Ventolin5 MG/1 ML INH
[2024-04-10 02:15] LABS: Bun/Creatinine Ratio 20.2 (12.0-20.0); Calcium, Blood 8.9 mg/dL (8.5-10.1); Creatinine, Blood 0.89 mg/dL (0.60-1.20); Potassium, Blood 4.6 mmol/L (3.5-5.5); Total Protein, Blood 7.1 g/dL (6.4-8.2)
[2024-04-10 02:16] LABS: Albumin/Globulin Ratio 0.7 (0.8-1.8); Bilirubin, Total 0.3 mg/dL (0.1-1.0); Globulin, Blood 4.1 g/dL (2.2-4.0)
[2024-04-10 02:17] LABS: BASOPHILS ABSOLUTE AUTO 0.06 K/mm3 (0.00-0.23); BASOPHILS PERCENT AUTO 1 % (0-2); EOSINOPHILS PERCENT AUTO 6 % (0-6); Hematocrit 42.7 % (37.0-53.0); Hemoglobin 14.8 g/dL (13.5-17.5); IMMATURE GRAN ABSOLUTE AUTO 0.02 K/mm3 (0.00-0.10); IMMATURE GRAN PERCENT AUTO 0 % (0-1); LYMPHOCYTES ABSOLUTE AUTO 1.48 K/mm3 (0.84-5.20); LYMPHOCYTES PERCENT AUTO 22 % (21-46); MONOCYTES ABSOLUTE AUTO 0.47 K/mm3 (0.16-1.47); MONOCYTES PERCENT AUTO 7 % (4-13); Mean Corpuscular HGB 29.5 pg (26.0-34.0); Mean Corpuscular HGB Conc 34.7 g/dL (31.5-36.5); Mean Corpuscular Volume 85 fL (80-100); Mean Platelet Volume 10.1 fL (9.1-12.4); NEUTROPHILS ABSOLUTE AUTO 4.37 K/mm3 (1.96-9.15); NEUTROPHILS PERCENT AUTO 64 % (41-73); Platelet Count 275 K/mm3 (150-400); RDW Coefficient Variation 12.3 % (11.7-14.2); RDW Standard Deviation 37.8 fL (35.1-46.3); Red Blood Cell Count 5.02 M/mm3 (4.30-5.90)
[2024-04-10] MEDS ORDERED: Insulin Glargine-Yfgn 100 Unit/mL 3 ML SYR SC ONE (03:10)
[2024-04-10] MEDS ORDERED: NS 1,000 ML IV SCH (03:10)
[2024-04-10] MEDS ORDERED: TOUJEO MAX300 UNIT/2 SC ×2 (03:14→03:51)
[2024-04-10 03:30] VITALS: BP 148/102
[2024-04-10] MEDS ORDERED: Insulin Human Lispro 100 Units/ML 3ML Syringe SC ONE ×2 (03:45→04:10)
[2024-04-10] MEDS ORDERED: INSULIN LI100 UNIT/6 SC (03:51)
[2024-04-11] MEDS ORDERED: TOUJEO MAX300 UNIT/2 SC (09:18)
[2024-04-11] MEDS ORDERED: INSULIN LI100 UNIT/6 SC (09:18)
== END 2024-04-10 04:18 | disposition home or self-care (01) ==
LOC: ER 01:35
PROVIDERS: Emergency Medicine
DX: E86.0 Dehydration (principal); E11.9 Type 2 diabetes mellitus without complications; J44.9 Chronic obstructive pulmonary disease, unspecified; I10 Essential (primary) hypertension; F17.210 Nicotine dependence, cigarettes, uncomplicated; Z79.84 Long term (current) use of oral hypoglycemic drugs; Z79.52 Long term (current) use of systemic steroids; Z79.4 Long term (current) use of insulin; Z79.899 Other long term (current) drug therapy; Z68.30 Body mass index [BMI] 30.0-30.9, adult; Z76.0 Encounter for issue of repeat prescription
CPT/HCPCS: 36415; 80053; 85025; 93005; 93010; 99284-25; A9270; J1815; J7030

== ENCOUNTER 2025-04-13 19:25 | Emergency (ER) | payer MEDICARE, OTHER ==
[~2025-04-13] VITALS: Ht 180.3 cm; Wt 95.2 kg
[~2025-04-13 19:25] MED LIST changes: +AMOCLA875 PO; +AZIT500 PO; +DOXY100 PO; +IPRAT-ALBUT 0.5-3 ML INH; +TOUJEO MAX300 UNIT/2 SC; +VISBIOME 112.51 EACH PO
[2025-04-13 19:41] LABS: BASOPHILS ABSOLUTE AUTO 0.04 K/mm3 (0.00-0.23); BASOPHILS PERCENT AUTO 0 % (0-2); EOSINOPHILS ABSOLUTE AUTO 0.58 K/mm3 (0.00-0.68); EOSINOPHILS PERCENT AUTO 6 % (0-6); Hematocrit 40.8 % (37.0-53.0); Hemoglobin 14.2 g/dL (13.5-17.5); IMMATURE GRAN ABSOLUTE AUTO 0.04 K/mm3 (0.00-0.10); IMMATURE GRAN PERCENT AUTO 0 % (0-1); LYMPHOCYTES ABSOLUTE AUTO 2.94 K/mm3 (0.84-5.20); LYMPHOCYTES PERCENT AUTO 29 % (21-46); MONOCYTES ABSOLUTE AUTO 0.65 K/mm3 (0.16-1.47); MONOCYTES PERCENT AUTO 6 % (4-13); Mean Corpuscular HGB Conc 34.8 g/dL (31.5-36.5); Mean Corpuscular Volume 84 fL (80-100); NEUTROPHILS ABSOLUTE AUTO 6.02 K/mm3 (1.96-9.15); NEUTROPHILS PERCENT AUTO 59 % (41-73); NRBC ABSOLUTE 0.00 K/mm3 (0.00-0.02); NRBC Auto 0.0 /100 WBC (0.0-0.2); Platelet Count 336 K/mm3 (150-400); RDW Coefficient Variation 12.9 % (11.7-14.2); RDW Standard Deviation 39.4 fL (35.1-46.3)
[2025-04-13 20:03] LABS: Alanine Aminotransfer (ALT/SGP 25.0 U/L (12-78); Albumin, Blood 3.2 g/dL (3.4-5.0); Albumin/Globulin Ratio 0.8 (0.8-1.8); Anion Gap 6.0 mmol/L (3-11); Aspartate Aminotrans (AST/SGOT 15.0 U/L (12-37); Bilirubin, Total 0.4 mg/dL (0.1-1.0); Blood Urea Nitrogen 11.0 mg/dL (8-24); CO2, Blood 28.0 mmol/L (21-32); Calcium, Blood 8.4 mg/dL (8.5-10.1); Chloride, Blood 104.0 mmol/L (98-108); Creatinine, Blood 0.84 mg/dL (0.60-1.20); Globulin, Blood 4.1 g/dL (2.2-4.0); Glucose, Blood 268.0 mg/dL (70-99); Potassium, Blood 4.0 mmol/L (3.5-5.5); Sodium, Blood 134.0 mmol/L (136-145); Total Protein, Blood 7.3 g/dL (6.4-8.2)
[2025-04-13 22:14] VITALS: BP 181/101
[2025-04-13] MEDS ORDERED: AZIT500 PO (22:24)
[2025-04-13] MEDS ORDERED: Prednisone20 MG PO (22:24)
== END 2025-04-13 22:43 | disposition home or self-care (01) ==
LOC: ER 19:25
PROVIDERS: Student in an Organized Health Care Education/Training Program
DX: J44.1 Chronic obstructive pulmonary disease with (acute) exacerbation (principal); E11.9 Type 2 diabetes mellitus without complications; I10 Essential (primary) hypertension; F17.210 Nicotine dependence, cigarettes, uncomplicated; Z79.2 Long term (current) use of antibiotics; Z79.899 Other long term (current) drug therapy; Z79.84 Long term (current) use of oral hypoglycemic drugs
CPT/HCPCS: 71046; 80053; 83880; 84484; 85025; 93005; 93010; 99285-25